=== PATIENT | male | born 1970 | race Two or more races ===

== ENCOUNTER 2021-05-10 13:48 | Emergency (ER) | payer SELFPAY ==
[2021-05-10 14:12] LABS: GLUCOSE, URINE (UA) NEGATIVE (NEGATIVE); LEUKOCYTE ESTERASE, URINE NEGATIVE (NEGATIVE); NITRITE,URINE NEGATIVE (NEGATIVE)
[2021-05-10 14:14] LABS: BASOPHILS % (AUTO) 1.1 %; EOSINOPHILS % (AUTO) 0.6 %; HCT - HEMATOCRIT 48.3 % (42.0-52.0); HGB - HEMOGLOBIN 17.1 g/dL (14.0-18.0); LYMPHOCYTES % (AUTO) 21.8 %; MEAN CORPUSCULAR HEMOGLOBIN 30.4 pg (27.0-31.0); MEAN CORPUSCULAR HGB CONC 35.4 g/dL (32.0-36.0); MEAN CORPUSCULAR VOLUME 85.8 fL (80.0-94.0); MEAN PLATELET VOLUME 9.6 fL (7.4-11.4); MONOCYTES % (AUTO) 13.8 %; NEUTROPHILS % (AUTO) 62.1 %; PLT - PLATELET COUNT 114 10^3/uL (130-450); RED BLOOD COUNT 5.63 10^6/uL (4.70-6.10); RED CELL DISTRIBUTION WIDTH 12.3 % (12.0-15.0)
[2021-05-10 14:17] LABS: CLARITY,URINE CLEAR (CLEAR)
[2021-05-10 14:19] LABS: BILIRUBIN,URINE LARGE (NEGATIVE); ICTOTEST,URINE POSITIVE
[2021-05-10 14:23] LABS: SLIDE REVIEW? Indicated
[2021-05-10 14:25] LABS: WHITE BLOOD COUNT 1.7 x10^3/uL (4.8-10.8)
[2021-05-10 14:26] LABS: ABNORMAL LYMPHS % (MANUAL) 0 %
[2021-05-10 14:28] LABS: WBC,URINE 0-3 /HPF (0-3)
[2021-05-10 14:29] LABS: BACTERIA,URINE Few /HPF (None Seen); RBC,URINE 0-5 /HPF (0-5); SQUAMOUS EPITHELIAL CELL,UR NONE SEEN (<= Few)
[2021-05-10 14:30] LABS: ALBUMIN 4.2 g/dL (3.2-5.5); ALBUMIN/GLOBULIN RATIO 1.2 (1.0-2.2); BILIRUBIN,TOTAL 6.2 mg/dL (0.2-1.0); CREATININE 0.8 mg/dL (0.6-1.2); POTASSIUM 4.1 mmol/L (3.5-5.0); TOTAL PROTEIN 7.8 g/dL (6.7-8.2)
[2021-05-10 14:41] LABS: BAND NEUTROPHILS % (MANUAL) 26 %; BASOPHILS % (MANUAL) 1 %; DIFFERENTIAL COMMENT MANUAL DIFFERENTIAL; LYMPHOCYTES # (MANUAL) 0.4 10^3/uL (1.5-3.5); LYMPHOCYTES % (MANUAL) 10 %; MONOCYTES # (MANUAL) 0.4 10^3/uL (0.0-1.0); NEUTROPHILS # (MANUAL) 0.9 10^3/uL (1.5-6.6); RBC MORPHOLOGY (MULTIPLE) 1+ ANISOCYTOSIS (NORMAL); REACTIVE LYMPHS % (MANUAL) 12 %
--- NOTE | 2021-05-10 14:54 | ED Physician Documentation ---
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 He is originally from [place]. He states that 2 to 3 days ago began having chills and sweats. Noticed that he appeared jaundiced today, went to the walk-in clinic and was sent here for evaluation. He does not believe he has had any weight loss. Does not think he has had any HIV exposure. Does not drink or smoke. No abdominal pain. Has had nausea and vomiting recently. Does not have any history of gallbladder disease. Does not take any medications. Nothing makes it better or worse. Review of Systems Ten Systems: 10 systems reviewed and negative Constitutional: denies: Fever, Chills Respiratory: denies: Cough GI: denies: Nausea, Vomiting, Diarrhea Skin: denies: Rash Musculoskeletal: denies: Neck pain, Back pain Neurologic: denies: Headache PD PAST MEDICAL HISTORY - Past Medical History Past Medical History: No - Past Surgical History Past Surgical History: No - Present Medications Home Medications: Ambulatory Orders Medication Instructions Recorded Confirmed No Known Home Medications 05/10/21 05/10/21 - Allergies Allergies/Adverse Reactions: Allergies Allergy/AdvReac Type Severity Reaction Status Date / Time Penicillins Allergy Rash Verified 05/10/21 13:57 PD ED PE NORMAL - Vitals Vital signs reviewed: Yes - General General: Alert and oriented X 3, No acute distress, Other (Mild jaundice) - HEENT HEENT: PERRL, Moist mucous membranes - Neck Neck: Supple, no meningeal sign - Cardiac Cardiac: RRR, Strong equal pulses - Respiratory Respiratory: No respiratory distress, Clear bilaterally - Abdomen Abdomen: Soft, Non tender, Non distended - Derm Derm: Warm and dry - Extremities Extremities: No edema - Neuro Neuro: Alert and oriented X 3 - Psych Psych: Normal mood, Normal affect Results - Vitals Vitals: Vital Signs - 24 hr 05/10/21 05/10/21 05/10/21 13:52 14:52 16:00 Temperature 36.9 C Heart Rate 110 H 101 H 96 Respiratory 14 18 18 Rate Blood Pressure 160/89 H 146/100 H 137/100 H O2 Saturation 99 98 98 05/10/21 16:38 Temperature Heart Rate 90 Respiratory 18 Rate Blood Pressure 147/82 H O2 Saturation 100 Oxygen O2 Source Room air - Labs Labs: Laboratory Tests 05/10/21 05/10/21 05/10/21 14:05 14:08 14:08 WBC 1.7 L* RBC 5.63 Hgb 17.1 Hct 48.3 MCV 85.8 MCH 30.4 MCHC 35.4 RDW 12.3 Plt Count 114 L MPV 9.6 Neut # (Auto) Not Reportable Lymph # (Auto) Not Reportable [place] # (Auto) Not Reportable Eos # (Auto) Not Reportable Baso # (Auto) Not Reportable Absolute Nucleated RBC Not Reportable Total Counted 100 Band Neuts % (Manual) 26 H Reactive Lymphs % (Man) 12 Abnorm Lymph % (Manual) 0 Nucleated RBC % Not Reportable Neutrophils # (Manual) 0.9 L Lymphocytes # (Manual) 0.4 L Monocytes # (Manual) 0.4 Eosinophils # (Manual) 0.0 Basophils # (Manual) 0.0 Differential Comment MANUAL DIFFERENTIAL Manual Slide Review Indicated RBC Morph Micro Appear 1+ ANISOCYTOSIS PT INR APTT Sodium 136 Potassium 4.1 Chloride 97 L Carbon Dioxide 29 Anion Gap 10.0 BUN 17 Creatinine 0.8 Estimated GFR (MDRD) 102 Glucose 107 H Calcium 10.0 Total Bilirubin 6.2 H Direct Bilirubin AST 114 H ALT 171 H Alkaline Phosphatase 273 H Total Protein 7.8 Albumin 4.2 Globulin 3.6 Albumin/Globulin Ratio 1.2 Lipase 28 Urine Color ORANGE Urine Clarity CLEAR Urine pH 6.0 Ur Specific [place] 1.025 Urine Protein Urine Glucose (UA) NEGATIVE Urine Ketones Urine Occult Blood Urine Nitrite NEGATIVE Urine Bilirubin LARGE H Urine Urobilinogen Ur Leukocyte Esterase NEGATIVE Urine RBC 0-5 Urine WBC 0-3 Ur Squamous Epith Cells NONE SEEN Urine Bacteria Few Ur Microscopic Review INDICATED Urine Culture Comments NOT INDICATED Acetaminophen Ethyl Alcohol HIV 1&2 Antibody Rapid Infectious [place] Assay 05/10/21 05/10/21 05/10/21 14:08 15:59 15:59 WBC RBC Hgb Hct MCV MCH MCHC RDW Plt Count MPV Neut # (Auto) Lymph # (Auto) [place] # (Auto) Eos # (Auto) Baso # (Auto) Absolute Nucleated RBC Total Counted Band Neuts % (Manual) Reactive Lymphs % (Man) Abnorm Lymph % (Manual) Nucleated RBC % Neutrophils # (Manual) Lymphocytes # (Manual) Monocytes # (Manual) Eosinophils # (Manual) Basophils # (Manual) Differential Comment Manual Slide Review RBC Morph Micro Appear PT 14.4 H INR 1.3 H APTT 32.0 Sodium Potassium Chloride Carbon Dioxide Anion Gap BUN Creatinine Estimated GFR (MDRD) Glucose Calcium Total Bilirubin Direct Bilirubin AST ALT Alkaline Phosphatase Total Protein Albumin Globulin Albumin/Globulin Ratio Lipase Urine Color Urine Clarity Urine pH Ur Specific [place] Urine Protein Urine Glucose (UA) Urine Ketones Urine Occult Blood Urine Nitrite Urine Bilirubin Urine Urobilinogen Ur Leukocyte Esterase Urine RBC Urine WBC Ur Squamous Epith Cells Urine Bacteria Ur Microscopic Review Urine Culture Comments Acetaminophen Ethyl Alcohol HIV 1&2 Antibody Rapid NEGATIVE Infectious [place] Assay NEGATIVE 05/10/21 15:59 WBC RBC Hgb Hct MCV MCH MCHC RDW Plt Count MPV Neut # (Auto) Lymph # (Auto) [place] # (Auto) Eos # (Auto) Baso # (Auto) Absolute Nucleated RBC Total Counted Band Neuts % (Manual) Reactive Lymphs % (Man) Abnorm Lymph % (Manual) Nucleated RBC % Neutrophils # (Manual) Lymphocytes # (Manual) Monocytes # (Manual) Eosinophils # (Manual) Basophils # (Manual) Differential Comment Manual Slide Review RBC Morph Micro Appear PT INR APTT Sodium Potassium Chloride Carbon Dioxide Anion Gap BUN Creatinine Estimated GFR (MDRD) Glucose Calcium Total Bilirubin Direct Bilirubin 3.6 H AST ALT Alkaline Phosphatase Total Protein Albumin Globulin Albumin/Globulin Ratio Lipase Urine Color Urine Clarity Urine pH Ur Specific [place] Urine Protein Urine Glucose (UA) Urine Ketones Urine Occult Blood Urine Nitrite Urine Bilirubin Urine Urobilinogen Ur Leukocyte Esterase Urine RBC Urine WBC Ur Squamous Epith Cells Urine Bacteria Ur Microscopic Review Urine Culture Comments Acetaminophen < 10 L Ethyl Alcohol 5.8 HIV 1&2 Antibody Rapid Infectious [place] Assay - Rads (name of study) CT chest Radiology: Final report received, EMP read contemporaneously, See rad report CT abdomen pelvis Radiology: Final report received, EMP read contemporaneously, See rad report PD MEDICAL DECISION MAKING - ED course Complexity details: reviewed results, re-evaluated patient, considered differential, d/w patient ED course: 50-year-old male with leukopenia, thrombocytopenia, transaminitis and hyperbilirubinemia. Unclear etiology. Possible viral syndrome? Negative HIV. Recommend outpatient HIV test, fourth-generation HIV test was sent. No acute findings on CT scan of the chest, abdomen pelvis. No evidence of malignancy. We will have him recheck his lab work with his doctor next week to see if his labs have improved. Patient is tolerating p.o. without difficulty here. Very well-appearing, nontoxic. Patient counseled regarding signs and symptoms for which I believe and urgent re-evaluation would be necessary. Patient with good understanding of and agreement to plan and is comfortable going home at this time This document was made in part using voice recognition software. While efforts are made to proofread this document, sound alike and grammatical errors may occur. Ct chest: IMPRESSION: Lungs are clear. Mildly thickened appearance of the right and transverse colon. Please see CT abdomen pelvis report for further details. Hepatomegaly with steatosis. CT Abd/pelvis IMPRESSION: Hepatomegaly with steatosis. Diffuse appearance of thickened right and transverse colon, possibly secondary to incomplete distention. While there is no associated inflammatory change, developing colitis cannot be definitively in appropriate clinical circumstance. Departure - Departure Disposition: 01 Home, Self Care Clinical Impression: Elevated LFTs, Hyperbilirubinemia, Thrombocytopenia Leukopenia Qualifiers: Leukopenia type: unspecified Qualified Code(s): D72.819 - Decreased white blood cell count, unspecified Condition: Good Instructions: ED Viral Syndrome Follow-Up: [facility] [place] [Provider Group] [facility] [place] [Provider Group] [facility] [Provider Group] Comments: The cause of your symptoms is unclear today. Your white blood cell count is low along with the low platelets. Your liver function tests are also high. You do have a Covid test pending as well as an HIV test pending. You should have your blood counts rechecked next week with your doctor. A viral hepatitis panel is also pending. Your CT scans do not show any acute abnormalities, but do show a fatty liver. Please return if you worsen. Otherwise make sure to follow-up with your doctor next week or return here for repeat evaluation. Go to the hospital website at [email or web address], click on the my [email or web address] tab and sign up for the patient portal. Discharge Date/Time: 05/10/21 16:30
[2021-05-10] MEDS ORDERED: IOVERSOL 320 100 ML VIAL IVP ONE ×2 (15:01→16:24)
--- NOTE | 2021-05-10 15:50 | CT Report ---
PROCEDURE: Abdomen/Pelvis W INDICATIONS: elevated LFT, bilirubin, pancytopenia CONTRAST: IV CONTRAST: Optiray 320 ml: 100 PO CONTRAST: *NO PO CONTRAST TECHNIQUE: After the administration of IV contrast, 5 mm thick sections acquired from the diaphragms to the symp hysis. 5 mm thick coronal and sagittal reformats were acquired. For radiation dose reduction, the f ollowing was used: automated exposure control, adjustment of mA and/or kV according to patient size. COMPARISON: None. FINDINGS: Image quality: Excellent. ABDOMEN: Lung bases: Lung bases are clear. Heart size is normal. Solid organs: Liver liver is enlarged measuring 19.8 cm with steatosis. The spleen is Normal in size and enhancement. Gallbladder is unremarkable Biliary system is non dilated. Pancreas enhances nor gege. No adrenal nodules. Kidneys demonstrate normal size and enhancement, without hydronephrosis. Peritoneum and bowel: Bowel loops are nonobstructive. There is incomplete distention of the right an d transverse colon, limiting evaluation. No free fluid or air. Nodes and vessels: No retroperitoneal or mesenteric adenopathy by size criteria. Aorta and inferior vena cava are normal in size. Miscellaneous: No ventral hernias. PELVIS: Genitourinary: Bladder wall thickness is normal. Miscellaneous: No inguinal hernias or adenopathy. Bones: No suspicious bony lesions. No vertebral body compression fractures. IMPRESSION: Hepatomegaly with steatosis. Diffuse appearance of thickened right and transverse colon, possibly secondary to incomplete distenti on. While there is no associated inflammatory change, developing colitis cannot be definitively in ap propriate clinical circumstance. Reviewed by: Laquita Guillory MD on 05/10/2021 3:48 PM PDT Approved by: Laquita Guillory MD on 05/10/2021 3:48 PM PDT Station ID: [id number]
--- NOTE | 2021-05-10 15:56 | CT Report ---
PROCEDURE: CHEST W INDICATIONS: elevated LFT, bilirubin, pancytopenia CONTRAST: IV CONTRAST: Optiray 320 ml: 100 PO CONTRAST: *NO PO CONTRAST TECHNIQUE: After the administration of intravenous contrast, 1 mm axial images were acquired from the pulmonary apices through the posterior costophrenic angles. Axial 5 mm soft tissue kernel reconstructions were performed as well as 8 mm axial MIP and coronal and sagittal 5 mm reformations. For radiation dose reduction, the following was used: automated exposure control, adjustment of mA and/or kV according to patient size. COMPARISON: None. FINDINGS: Image quality: Excellent. Lungs and pleura: No acute air space opacities. No pleural effusions or pneumothorax. Central and peripheral airways are patent and normal in caliber. Mediastinum: Heart size is normal. No pericardial effusion. No mediastinal or hilar adenopathy by size criteria. Thoracic aorta and central pulmonary arteries are normal in size. Esophagus is jeannie l in caliber. Mild hiatal hernia. Bones and chest wall: No suspicious bony lesions. No vertebral body compression fractures. No axil jose or supraclavicular adenopathy by size criteria. The thyroid is normal in size and there are no incidental findings.. Abdomen: Liver is enlarged with steatosis. Mildly thickened appearance within portions of the right a nd transverse colon. Otherwise, visualized upper abdominal solid organs appear normal. Upper abdomin al bowel loops are normal in caliber. IMPRESSION: Lungs are clear. Mildly thickened appearance of the right and transverse colon. Please see CT abdomen pelvis report fo r further details. Hepatomegaly with steatosis. CLINICAL RECOMMENDATION STATEMENTS: In patients <35 years with an ITN detected on CT, MRI, or extrathyroidal ultrasound, the Committee re commends further evaluation with dedicated thyroid ultrasound if the nodule is "e1 cm and has no susp icious imaging features, and if the patient has normal life expectancy. In patients "e35 years with an ITN detected on CT, MRI, or extrathyroidal ultrasound, the Committee r ecommends further evaluation with dedicated thyroid ultrasound if the nodule is "e1.5 cm and has no s uspicious imaging features, and if the patient has normal life expectancy. (ACR, 2014) Reviewed by: Laquita Guillory MD on 05/10/2021 3:55 PM PDT Approved by: Laquita Guillory MD on 05/10/2021 3:55 PM PDT Station ID: [id number]
[2021-05-10 16:15] LABS: HIV RAPID SCREEN NEGATIVE (NEGATIVE)
[2021-05-10 16:17] LABS: INR 1.3 (0.8-1.2); PT - PROTHROMBIN TIME 14.4 secs (9.9-12.6)
[2021-05-10 16:20] LABS: INFECTIOUS MONONUCLEOSIS NEGATIVE (Negative)
[2021-05-10 16:23] LABS: ACETAMINOPHEN < 10 ug/mL (10-30); BILIRUBIN,DIRECT 3.6 mg/dL (0.1-0.5); ETOH - ETHANOL 5.8 mg/dL
[2021-05-10 16:39] VITALS: BP 147/82
[2021-05-11 12:27] LABS: HEPATITIS A IGM NON-REACTIVE (NON-REACTIVE); HEPATITIS B CORE ANTIBODY IGM NON-REACTIVE (NON-REACTIVE); HEPATITIS B SURFACE ANTIGEN NON-REACTIVE (NON-REACTIVE); HEPATITIS C ANTIBODY NON-REACTIVE (NON-REACTIVE)
[2021-05-11 16:31] LABS: HIV AG/AB 4TH GEN NON-REACTIVE (NON-REACTIVE)
== END 2021-05-10 16:30 | disposition home or self-care (01) ==
LOC: ED 13:48
DX: D72.819 Decreased white blood cell count, unspecified (principal); D69.6 Thrombocytopenia, unspecified; E80.6 Other disorders of bilirubin metabolism; R79.89 Other specified abnormal findings of blood chemistry
CPT/HCPCS: 36415; 71260; 74177; 80053; 80074; 80307; 80320; 81001; 82248; 83690; 85025; 85610; 85730; 86308; 86703; 87389; 99283; 99284; Q9967; 81003; 87086